=== PATIENT | female | born 2000 | race Caucasian/White ===

== ENCOUNTER 2019-05-11 13:12 | Emergency (ER) | payer OTHER ==
[~2019-05-11] VITALS: Ht 165.1 cm; Wt 81.9 kg
[~2019-05-11 13:12] MED LIST: ACET500C5 PO; D-ME473S2 PO; ONDA4TAB14 PO; ONDA8TAB14 PO
[2019-05-11 13:27] VITALS: BP 130/69; PULSE 106; RESP 17; Ht 165.1 cm; Wt 81.9 kg
[2019-05-11] MEDS ORDERED: ONDANSETRON (ODT) 4 MG TAB ODT STA (15:25)
== END 2019-05-11 16:48 | disposition home or self-care (01) ==
LOC: FTE 13:12
DX: O21.0 Mild hyperemesis gravidarum (principal); Z3A.18 18 weeks gestation of pregnancy
CPT/HCPCS: 80053; 81001; 85025; 85610; 85730; Z7502; Z7610; 81003; 99283